=== PATIENT | female | born 1975 | race Caucasian/White ===

== ENCOUNTER 2016-10-13 05:11 | Observation (INO) | payer OTHER ==
[~2016-10-13] VITALS: Ht 167.6 cm; Wt 107.0 kg
[~2016-10-13 05:11] MED LIST: FEOSOL325 MG PO; K-TAB 10MEQ10 MEQ PO; PERCOCET 5-3251 EACH PO; PRENATAL 1+1)(P1 TAB PO; PROCARDIA XL30 MG PO; SURFAK240 MG PO
[2016-10-13 05:39] LABS: BILIRUBIN URINE NEGATIVE (NEGATIVE); BLOOD URINE NEGATIVE /UL (NEGATIVE); COLOR URINE YELLOW (YELLOW); GLUCOSE URINE NEGATIVE (NEGATIVE); KETONE URINE NEGATIVE (NEGATIVE); LEUKOCYTES URINE 25 /UL (NEGATIVE); NITRITE URINE NEGATIVE (NEGATIVE); PROTEIN URINE 15 mg/dL (NEGATIVE); SPEC GRAVITY URINE 1.005 (1.003-1.035); TURBIDITY URINE CLEAR (CLEAR); UROBILINOGEN URINE NORMAL (NORMAL)
[2016-10-13 05:56] LABS: BACTERIA URINE MODERATE (NEGATIVE); RBC URINE NEGATIVE #/HPF (NEGATIVE)
[2016-10-13 05:57] LABS: BASOPHIL # 0.1 K/uL (0.0-0.2); BASOPHIL % 0.5 %; EOSINOPHIL # 0.3 K/uL (0.0-0.5); EOSINOPHIL % 2.7 %; HEMOGLOBIN 12.5 g/dL (11.0-15.0); IMMATURE GRANULOCYTE # 0.1 K/uL (0.0-0.3); IMMATURE GRANULOCYTE % 0.6 %; LYMPHOCYTE % 18.2 %; MCH 28.4 pg (27.0-34.0); MCHC 33.2 gm/dL (32.0-36.5); MCV 85.7 fl (83.0-98.0); MONOCYTE # 0.5 K/uL (0.0-1.0); MONOCYTE % 4.9 %; MPV 12.1 fl (9.4-12.4); NEUTROPHIL % 73.1 %; NRBC % 0 /100WBC (0-0.00); PLATELET COUNT 244 K/uL (150-450); RDW-CV 14.3 % (11.9-14.6); WBC 10.9 K/uL (4.0-11.0)
[2016-10-13 06:01] LABS: HEMATOCRIT 37.7 % (33.0-46.0)
[2016-10-13 06:18] LABS: ALBUMIN 2.7 gm/dL (3.5-5.0); ALK PHOS 88 IU/L (33-138); ALT 17 IU/L (12-78); ANION GAP 13.4 (10.0-19.0); AST 13 IU/L (10-40); BLOOD UREA NITROGEN 6 mg/dL (6-24); CALCIUM 8.8 mg/dL (8.5-10.5); CHLORIDE 109 mMol/L (96-110); CO2 20 mMol/L (22-32); CREATININE 0.5 mg/dL (0.5-1.1); POTASSIUM 3.4 mMol/L (3.7-5.1); SODIUM 139 mMol/L (135-145); TOTAL PROTEIN 7.1 g/dL (6.0-8.4)
[2016-10-13 06:19] LABS: TOTAL BILIRUBIN 0.2 mg/dL (0.0-1.5)
--- NOTE | 2016-10-13 06:33 | NUR ---
@ 1900, pt called for nurse to come in to help with breast pump because she had not had any teaching at all. tati,[facility] does breastpump teaching. pt and her mother express dissatisfaction with documentum consultant not being available. nurse acknowledges concern.
[2016-10-13] MEDS ORDERED: TRANDATE OR NO100 MG PO (06:36)
[2016-10-13] MEDS ORDERED: ASPIRIN LO-DOSE81 MG PO (06:37)
[2016-10-13] MEDS ORDERED: TUMS200 MG PO (08:07)
--- NOTE | 2016-10-13 17:38 | NUR ---
10/13/16:1730 Fasting blood sugar this am 105,2 hr ppbs 127. Had Celestone this am,next dose tomorrow am. Bp 117/65-169/93,190/100. Bilateral patellar reflexes 2+. Repeat labs in am. 24 hr Ua continues until 0940 am 10/14/16. Fhr baseline 145. Fetus very active audibly. Needs NST bid.Labetalol increased to 300 mg tid. clinical systems educator Patti did see today. Pneumatics on. Had lg emesis after eating some of lunch. Pt. reports feeling nauseated when taking meds on empty stomach. No nausea rest of day. Denies pain or headaches. Needs 1 hr BP's.
[2016-10-14 05:17] LABS: BASOPHIL % 0.1 %; EOSINOPHIL % 0.1 %; HEMATOCRIT 35.7 % (33.0-46.0); HEMOGLOBIN 12.1 g/dL (11.0-15.0); IMMATURE GRANULOCYTE # 0.1 K/uL (0.0-0.3); IMMATURE GRANULOCYTE % 0.7 %; LYMPHOCYTE # 1.6 K/uL (0.8-4.0); LYMPHOCYTE % 9.6 %; MCH 29.4 pg (27.0-34.0); MCHC 33.9 gm/dL (32.0-36.5); MCV 86.7 fl (83.0-98.0); MONOCYTE # 0.6 K/uL (0.0-1.0); MONOCYTE % 3.7 %; MPV 12.2 fl (9.4-12.4); NEUTROPHIL # (ANC) 14.2 K/uL (1.8-7.8); NEUTROPHIL % 85.8 %; NRBC % 0 /100WBC (0-0.00); PLATELET COUNT 247 K/uL (150-450); RBC 4.12 M/uL (3.50-5.50); RDW-CV 14.1 % (11.9-14.6)
[2016-10-14 05:20] LABS: WBC 16.6 K/uL (4.0-11.0)
--- NOTE | 2016-10-14 05:24 | NUR ---
Last VS: T:98.2 P:82 R: 17 BP: 141/72 Pain ratin Last pain med: NONE GIVEN Medicated at: Effective: FHT: 140's Dilatation: Effacement %: Station: Significant event: PT TOOK AMBIEN AT 2200 WITH HER LABETALOL. HAS LABETALOL TID AND PROCARDIA IN THE AM. PRESSURES RANGE FROM 119/74 TO 139/84 ON HER LEFT SIDE. 24 HR UA ENDS @ 0940. PT WILL HAVE SECOND DOSE OF CELESTONE THIS AM.
[2016-10-14 05:41] LABS: ALBUMIN 2.5 gm/dL (3.5-5.0); ALK PHOS 83 IU/L (33-138); ALT 14 IU/L (12-78); AST 11 IU/L (10-40); CALCIUM 9.1 mg/dL (8.5-10.5); CHLORIDE 105 mMol/L (96-110); CO2 20 mMol/L (22-32); CREATININE 0.6 mg/dL (0.5-1.1); SODIUM 136 mMol/L (135-145); TOTAL BILIRUBIN 0.2 mg/dL (0.0-1.5); TOTAL PROTEIN 6.8 g/dL (6.0-8.4)
[2016-10-14 05:42] LABS: BLOOD UREA NITROGEN 12 mg/dL (6-24)
[2016-10-14] MEDS ORDERED: LABETALOL HCL300 MG PO (11:43)
== END 2016-10-14 12:00 | disposition disaster alternative care site (69) ==
LOC: GOBM 05:11 → GOBS 05:11 → GOBM 05:12 → GOBS 05:12
PROVIDERS: ADMIT Obstetrics & Gynecology
DX: O16.3 Unspecified maternal hypertension, third trimester (principal); O24.419 Gestational diabetes mellitus in pregnancy, unspecified control; O99.213 Obesity complicating pregnancy, third trimester; Z3A.28 28 weeks gestation of pregnancy; Z79.82 Long term (current) use of aspirin; Z88.0 Allergy status to penicillin; Z79.899 Other long term (current) drug therapy
CPT/HCPCS: G0378; G0463; J0702